=== PATIENT | male | born 1960 | race Caucasian/White ===

== ENCOUNTER 2020-06-27 17:27 | Emergency (ER) | payer OTHER ==
[2020-06-27] MEDS ORDERED: Diphtheria,Pertussis(Acell),Tetanus Vaccine 0.5 ML Syringe IM ONE (18:16)
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
== END 2020-06-27 18:45 | disposition home or self-care (01) ==
LOC: FB.ED 17:27
DX: S40.022A Contusion of left upper arm, initial encounter (principal); S40.021A Contusion of right upper arm, initial encounter; Z23 Encounter for immunization; Z87.891 Personal history of nicotine dependence; V43.63XA Car passenger injured in collision with pick-up truck in traffic accident, initial encounter; Y92.411 Interstate highway as the place of occurrence of the external cause
CPT/HCPCS: 90471; 90715; 99284